=== PATIENT | female | born 1945 | race Caucasian/White ===

== ENCOUNTER 2024-01-24 14:48 | Emergency (ER) | payer MEDICARE ==
[~2024-01-24] VITALS: Ht 160 cm; Wt 59.1 kg
[~2024-01-24 14:48] MED LIST: CALC1TAB30 PO; COQ1200C3 PO; ELIQ5TAB PO; IBAN150T6 PO; LEVOTAB10 PO; METO1TAB7 PO; MULT-90 PO; ROPI0.5T33 PO
[2024-01-24 15:11] LABS: BASO % 0.3 % (0.0-1.0); EOS # 0.1 10^3/uL (0.0-0.5); EOS % 0.6 % (0.0-3.0); HEMATOCRIT 41.2 % (36.0-47.0); HEMOGLOBIN 13.3 g/dl (12.0-15.5); LYMPH # 1.2 10^3/uL (1.5-5.0); LYMPH % 10.3 % (24.0-44.0); MEAN CORPUSCULAR HEMOGLOBIN 32.8 pg (27.0-33.0); MEAN CORPUSCULAR HGB CONC 32.3 g/dl (32.0-36.5); MEAN CORPUSCULAR VOLUME 101.5 fl (80.0-96.0); MONO # 1.2 10^3/uL (0.0-0.8); MONO % 10.1 % (2.0-8.0); NEUTROPHILS # 9.4 10^3/uL (1.5-8.5); NEUTROPHILS % 78.4 % (36.0-66.0); PLATELET COUNT, AUTOMATED 225 10^3/uL (150-450); RED BLOOD COUNT 4.06 10^6/uL (4.00-5.40); WHITE BLOOD COUNT 11.9 10^3/uL (4.0-10.0)
[2024-01-24 15:19] LABS: CALCIUM LEVEL 9.3 MG/DL (8.3-10.6); CREATININE FOR GFR 1.02 MG/DL (0.55-1.30); GLOMERULAR FILTRATION RATE 55.8 (>39); POTASSIUM SERUM 4.4 MMOL/L (3.5-5.1)
[2024-01-24 16:16] LABS: ALBUMIN 3.5 G/DL (3.2-5.2); BILIRUBIN,DIRECT 0.4 MG/DL (<0.4); BILIRUBIN,TOTAL 1.4 MG/DL (0.3-1.2); TOTAL PROTEIN 7.2 G/DL (5.7-8.2)
[2024-01-24] MEDS: PANTOPRAZOLE 40MG VIAL IV ONE (18:16)
[2024-01-24 18:33] VITALS: BP 119/56
[2024-01-24] MEDS: METOPROLOL TART 25 MG TABLET PO ONE (18:33)
[2024-01-24] MEDS: NITROGLYCERIN 0.4MG SUBL TABLET SL PRN (18:33)
[2024-01-24] MEDS: METOPROLOL 5 MG/5 ML VIAL IV SCH (18:33)
[2024-01-24] MEDS: fentaNYL 100 MCG/2 ML INJECTION IV ONE (18:57)
[2024-01-24 20:15] VITALS: BP 102/59; TEMP 96.9; O2SAT 95
[2024-01-24] MEDS ORDERED: LOPR1TAB6 PO (20:17)
[2024-01-24] MEDS ORDERED: AUGM500T34 PO (20:17)
[2024-01-24] MEDS: AUGMENTIN 875 MG TAB PO ONE (20:21)
== END 2024-01-24 20:38 | disposition home or self-care (01) ==
LOC: M ED 14:48
DX: I48.92 Unspecified atrial flutter (principal); I48.91 Unspecified atrial fibrillation; I44.0 Atrioventricular block, first degree; E78.5 Hyperlipidemia, unspecified; F10.10 Alcohol abuse, uncomplicated; Z88.1 Allergy status to other antibiotic agents; Z79.01 Long term (current) use of anticoagulants; Z79.810 Long term (current) use of selective estrogen receptor modulators (SERMs); Z79.899 Other long term (current) drug therapy
CPT/HCPCS: 71045; 71275; 80048; 80076; 83690; 84484; 85025; 87486; 87581; 87633; 87798; 93005; 93041; 94760; 96374; 96375; 99285; J2470; J3010